=== PATIENT | male | born 2000 | race Caucasian/White ===

== ENCOUNTER 2021-12-24 03:50 | Emergency (ER) | payer BC ==
[~2021-12-24] VITALS: Ht 175 cm; Wt 83.9 kg
--- NOTE | 2021-12-24 04:21 | ED EENT ---
History of Present Illness General Chief Complaint: Dental Problems/Pain Stated Complaint: TOOTH EXTRACTION,BLEEDING Nursing Triage Note: Pt to ED c/o bleeding gums. Pt has tooth extraction on Friday by Dr Cha, onset bleeding 0230 Source: patient Exam Limitations: no limitations History of Present Illness Date Seen by Provider: Dec 24, 2021 Time Seen by Provider: 03:57 Initial Comments Here with report of bleeding area where tooth extraction was done last Friday at Dr. Cha's office. States he had a bad tooth and it was removed. Doing fine until this morning when he noted bleeding. He states that freaked him out and he did not really know what to do so he came here. He was biting on his shirt but bleeding continued. He has not tried gauze packing. Denies other concerns. Timing/Duration: abrupt Location: dental Prearrival Treatment: no prearrival treatment Allergies and Home Medications Patient Home Medication List Home Medication List Reviewed: Yes Review of Systems Review of Systems Constitutional: No chills, No fever Mouth: see HPI, pain, bloody discharge Respiratory: No cough, No short of breath Cardiovascular: No chest pain, No edema Past Ctnssju-Peuabq-Ascmob Hx Patient Social History Tobacco Use?: No Substance use?: No Immunizations Up To Date Influenza Vaccine Up-to-Date: No; Not Current Past Medical History Surgeries: Yes (Dental) Respiratory: No Family Medical History Reviewed Nursing Family Hx No Pertinent Family Hx Physical Exam Vital Signs Vital Signs - First Documented 12/24/21 03:55 Temp 36.8 Pulse 67 Resp 18 B/P (MAP) 131/78 (95) Pulse Ox 98 O2 Delivery Room Air Height, Weight, BMI Height: '" Weight: lbs. oz. kg; 27.00 BMI Method: General Appearance: WD/WN, mild distress Mouth/Throat: dental tenderness, other (Bleeding from area of tooth extraction in area of #15) Cardiovascular: regular rate, rhythm, no murmur Respiratory: lungs clear, normal breath sounds Neurologic/Psychiatric: alert, oriented x 3 Progress/Results/Core Measures Results/Orders My Orders Orders - NADEEM GORE MD Lidocaine/Epi 1% 1:100,000 (Xylocaine 1% (12/24/21 05:55) Medications Given in ED Current Medications Medications Dose Ordered Sig/Tres Route Start Time Stop Time Status Last Admin Dose Admin Lidocaine/ Epinephrine 10 ml STK-MED ONCE .ROUTE 12/24/21 05:55 12/24/21 05:59 DC 12/24/21 06:00 10 ML Vital Signs/I&O 12/24/21 03:55 Temp 36.8 Pulse 67 Resp 18 B/P (MAP) 131/78 (95) Pulse Ox 98 O2 Delivery Room Air Blood Pressure Mean: 95 Progress Progress Note : Progress Note Seen and evaluated. Mouth rinsed with fresh water. Blood clot removed. Gauze pad placed under area of bleeding to thin patient instructed to bite down to provide pressure. We will monitor patient. 0617: We have tried replacing gauze and then now we are using Surgicel under gauze that is soaked in lidocaine with epi in an effort to stop the bleeding from the area of the tooth. I had to replace this. Socket suctioned and clots removed. I have made contact with Dr. Cha's office and his assistant manager bilingual will see patient in office now. This is discussed with patient and family who agree. Discharged to Dr. Cha's office. Patient verbalized understanding instructions and agreement with plan. Departure Impression Primary Impression: Postoperative bleeding from mouth Disposition: 01 HOME, SELF-CARE Condition: Stable Departure-Patient Inst. Decision time for Depature: 06:18 Referrals: JOVITA CHA DDS NO,LOCAL PHYSICIAN (PCP) Primary Care Physician Patient Instructions: Bleeding After Surgery Add. Discharge Instructions: All discharge instructions reviewed with patient and/or family. Voiced understanding. Go directly to Dr. Cha's office to be seen. Return for worse pain, bleeding or other concerns as needed. Images Mouth/Nose 1 - NADEEM GORE MD Dec 24, 2021 04:21
[2021-12-24] MEDS ORDERED: LIDOCAINE/EPI 1%-1:100,000 (XYLOCAINE) 10 ML ONE (05:55)
[2021-12-24 06:27] VITALS: BP 112/68
== END 2021-12-24 06:27 | disposition home or self-care (01) ==
LOC: ER 03:56
DX: K91.840 Postprocedural hemorrhage of a digestive system organ or structure following a digestive system procedure (principal); Z28.310 Unvaccinated for COVID-19
CPT/HCPCS: 99282